=== PATIENT | female | born 1960 | race Caucasian/White ===

== ENCOUNTER → 2018-09-10 | Outpatient (CLI) | payer OTHER | END | disposition home or self-care (01) | LOC: WOUND 13:46 | PROVIDERS: ATTEND Internal Medicine | DX: S81.801A Unspecified open wound, right lower leg, initial encounter (principal); S81.802A Unspecified open wound, left lower leg, initial encounter; M36.8 Systemic disorders of connective tissue in other diseases classified elsewhere; I10 Essential (primary) hypertension; E03.9 Hypothyroidism, unspecified; M19.90 Unspecified osteoarthritis, unspecified site; H91.93 Unspecified hearing loss, bilateral; X58.XXXA Exposure to other specified factors, initial encounter; Y93.89 Activity, other specified; Y92.89 Other specified places as the place of occurrence of the external cause; Y99.8 Other external cause status | CPT/HCPCS: 11042; G0463; WOU0463 ==

== ENCOUNTER → 2018-09-18 | Outpatient (CLI) | payer OTHER | END | disposition home or self-care (01) | LOC: WOUND 14:58 | PROVIDERS: ATTEND Nurse Practitioner Family | DX: S81.832D Puncture wound without foreign body, left lower leg, subsequent encounter (principal); S81.831D Puncture wound without foreign body, right lower leg, subsequent encounter; M36.8 Systemic disorders of connective tissue in other diseases classified elsewhere; I10 Essential (primary) hypertension; E03.9 Hypothyroidism, unspecified; X58.XXXD Exposure to other specified factors, subsequent encounter | CPT/HCPCS: 97597 ==

== ENCOUNTER → 2018-09-25 | Outpatient (CLI) | payer OTHER | END | disposition home or self-care (01) | LOC: WOUND 13:16 | PROVIDERS: ATTEND Nurse Practitioner Family | DX: S81.832D Puncture wound without foreign body, left lower leg, subsequent encounter (principal); S81.831D Puncture wound without foreign body, right lower leg, subsequent encounter; I10 Essential (primary) hypertension; L94.1 Linear scleroderma; E03.9 Hypothyroidism, unspecified; H91.93 Unspecified hearing loss, bilateral; M19.90 Unspecified osteoarthritis, unspecified site; X58.XXXD Exposure to other specified factors, subsequent encounter | CPT/HCPCS: 11042; 97597 ==

== ENCOUNTER → 2018-10-02 | Outpatient (CLI) | payer OTHER | END | disposition home or self-care (01) | LOC: WOUND 15:15 | PROVIDERS: ATTEND Nurse Practitioner Family | DX: S81.831D Puncture wound without foreign body, right lower leg, subsequent encounter (principal); M36.8 Systemic disorders of connective tissue in other diseases classified elsewhere; I10 Essential (primary) hypertension; E03.9 Hypothyroidism, unspecified; M19.90 Unspecified osteoarthritis, unspecified site; H91.93 Unspecified hearing loss, bilateral; X58.XXXD Exposure to other specified factors, subsequent encounter | CPT/HCPCS: 97597 ==

== ENCOUNTER → 2018-10-10 | Outpatient (CLI) | payer OTHER | END | disposition home or self-care (01) | LOC: WOUND 15:14 | PROVIDERS: ATTEND Internal Medicine | DX: S81.801D Unspecified open wound, right lower leg, subsequent encounter (principal); L94.1 Linear scleroderma; I73.00 Raynaud's syndrome without gangrene; I10 Essential (primary) hypertension; E03.9 Hypothyroidism, unspecified; M19.90 Unspecified osteoarthritis, unspecified site; H91.8X3 Other specified hearing loss, bilateral; X58.XXXD Exposure to other specified factors, subsequent encounter | CPT/HCPCS: 97597 ==

== ENCOUNTER → 2018-10-15 | Outpatient (CLI) | payer OTHER | END | disposition home or self-care (01) | LOC: WOUND 14:57 | PROVIDERS: ATTEND Internal Medicine | DX: S81.831D Puncture wound without foreign body, right lower leg, subsequent encounter (principal); L94.1 Linear scleroderma; I10 Essential (primary) hypertension; H91.90 Unspecified hearing loss, unspecified ear; M19.90 Unspecified osteoarthritis, unspecified site; E03.9 Hypothyroidism, unspecified; X58.XXXD Exposure to other specified factors, subsequent encounter | CPT/HCPCS: 97597 ==

== ENCOUNTER 2018-10-22 15:00 | Outpatient (CLI) | payer OTHER | END 2018-10-29 12:58 | disposition home or self-care (01) | LOC: WOUND 15:00 | PROVIDERS: ATTEND Internal Medicine | DX: S81.801D Unspecified open wound, right lower leg, subsequent encounter (principal); M36.8 Systemic disorders of connective tissue in other diseases classified elsewhere; I10 Essential (primary) hypertension; E03.9 Hypothyroidism, unspecified; H91.8X3 Other specified hearing loss, bilateral; M19.90 Unspecified osteoarthritis, unspecified site; X58.XXXD Exposure to other specified factors, subsequent encounter | CPT/HCPCS: 97597 ==

== ENCOUNTER → 2018-11-01 | Outpatient (CLI) | payer OTHER | END | disposition home or self-care (01) | LOC: WOUND 15:20 | PROVIDERS: ATTEND Internal Medicine | DX: S81.801D Unspecified open wound, right lower leg, subsequent encounter (principal); M36.8 Systemic disorders of connective tissue in other diseases classified elsewhere; I10 Essential (primary) hypertension; E03.9 Hypothyroidism, unspecified; M19.90 Unspecified osteoarthritis, unspecified site; H91.8X3 Other specified hearing loss, bilateral; X58.XXXD Exposure to other specified factors, subsequent encounter | CPT/HCPCS: 99213 ==